=== PATIENT | male | born 1960 | race Hispanic/Latino ===

== ENCOUNTER 2018-03-21 21:08 | Emergency (ER) | payer OTHER ==
[2018-03-21 21:27] VITALS: RESP 18
[2018-03-21] MEDS ORDERED: Sodium Chloride 0.9% 1,000 ML IV STA (21:42)
[2018-03-21 22:19] LABS: BASO # 0.02 K/mm3 (0.0-2.0); BASO % 0.2 % (0.0-3.0); EOS # 0.1 (0.0-0.7); EOS % 0.4 % (1.5-5.0); GRAN # 8.19 (1.4-6.5); HEMOGLOBIN 17.6 g/dL (14.0-18.0); LYMPH % 24.5 % (22.0-35.0); MEAN CORPUSCULAR HEMOGLOBIN 29.7 pg (25.0-35.0); MEAN CORPUSCULAR HGB CONC 33.8 g/dl (31.0-37.0); MONO # 1.1 (0.1-0.6); MONO % 8.9 % (1.0-6.0); RBC 5.92 10^6/uL (3.5-6.1); WHITE BLOOD COUNT 12.4 10^3/ul (4.5-11.0)
[2018-03-21 22:22] LABS: ALB/GLOB RATIO 1.3 (1.1-1.8); ALBUMIN 4.5 g/dL (3.0-4.8); ALT/SGPT 100 U/L (7-56); AST/SGOT 73 U/L (17-59); BLOOD UREA NITROGEN 12 mg/dL (7-21); CALCIUM 9.3 mg/dL (8.4-10.5); GFR NON-AFRICAN AMERICAN > 60
--- NOTE | 2018-03-21 22:26 | ED PDOC ---
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 States that he was at the local [facility] drinking beer with friends, when he started to feel "foggy with tightness to the back of my neck." He then got up and walked outside to sit at the bench, afterwards recall being woken up on the ground. He reports that he did not hit his head. Reports feeling better upon arrival to the ER, without any dizziness. Otherwise:(-) trauma, (-) headache, (-) tinnitus, (- ) hearing loss, (-) chest pain, (-) dyspnea, (-) fever, (-) vomiting, (-) diarrhea, (-) GI bleeding. PMD Rosas <Erin Triana PA-C - Last Filed: 03/22/18 00:37> <Pura Martini - Last Filed: 03/23/18 13:43> - General Chief Complaint: Medical Clearance Time Seen by Provider: 03/21/18 21:23 Past Medical History - Infectious Disease Hx of Infectious Diseases: None - Cardiac Hx Cardiac Disorders: Yes Hx Hypertension: Yes - Pulmonary Hx Respiratory Disorders: No - Neurological Hx Neurological Disorder: No - HEENT Hx HEENT Disorder: No - Renal Hx Renal Disorder: No - Endocrine/Metabolic Hx Endocrine Disorders: No - Hematological/Oncological Hx Blood Disorders: No - Integumentary Hx Dermatological Disorder: No - Musculoskeletal/Rheumatological Hx Musculoskeletal Disorders: No - Gastrointestinal Hx Gastrointestinal Disorders: No - Genitourinary/Gynecological Hx Genitourinary Disorders: No - Psychiatric Hx Psychophysiologic Disorder: No Hx Substance Use: Yes - Surgical History Other/Comment: rt ankle sx c screws - Anesthesia Hx Anesthesia: Yes Hx Anesthesia Reactions: No <Erin Triana PA-C - Last Filed: 03/22/18 00:37> Family/Social History Family/Social History: Unknown Family HX Smoking Status: Heavy Smoker > 10 Cigarettes Daily Hx Alcohol Use: Yes Hx Substance Use: Yes Substance used: marijuana <Erin Triana PA-C - Last Filed: 03/22/18 00:37> Allergies/Home Meds <Erin Triana PA-C - Last Filed: 03/22/18 00:37> <MartiniJessePura - Last Filed: 03/23/18 13:43> Allergies/Adverse Reactions: Allergies No Known Allergies Allergy (Verified 03/21/18 21:15) Home Medications: Home Meds Medication Instructions Recorded Confirmed RX: Metoprolol Succinate 50 mg PO DAILY 03/21/18 03/21/18 [Kapspargo Sprinkle] RX: Simvastatin [Zocor] 40 mg PO DAILY 03/21/18 03/21/18 Review of Systems - Review of Systems Constitutional: absent: Fatigue, Fevers Respiratory: absent: SOB, Cough Cardiovascular: Syncope. absent: Chest Pain, Palpitations Gastrointestinal: absent: Abdominal Pain, Diarrhea, Nausea Genitourinary Male: absent: Dysuria, Frequency Musculoskeletal: Neck Pain. absent: Arthralgias, Back Pain Skin: absent: Rash, Pruritis Neurological: Dizziness. absent: Headache <Erin Triana PA-C - Last Filed: 03/22/18 00:37> Physical Exam Vital Signs Pulse Resp BP Pulse Ox 03/21/18 21:21 92 H 18 107/74 94 L Temperature: Afebrile Blood Pressure: Normal Pulse: Regular Respiratory Rate: Normal Appearance: Positive for: Well-Appearing, Non-Toxic, Comfortable Pain Distress: None Mental Status: Positive for: Alert and Oriented X 3 - Systems Exam Head: Present: Atraumatic, Normocephalic Pupils: Present: PERRL Extroacular Muscles: Present: EOMI Conjunctiva: Present: Normal Mouth: Present: Dry Neck: Present: Normal Range of Motion Respiratory/Chest: Present: Clear to Auscultation, Good Air Exchange. No: Respiratory Distress, Accessory Muscle Use Cardiovascular: Present: Regular Rate and Rhythm, Normal S1, S2. No: Murmurs Abdomen: No: Tenderness, Distention, Peritoneal Signs Back: Present: Normal Inspection Upper Extremity: Present: Normal Inspection. No: Cyanosis, Edema Lower Extremity: Present: Normal Inspection. No: Edema Neurological: Present: GCS=15, CN II-XII Intact, Speech Normal, Motor Func Grossly Intact, Normal Sensory Function, Memory Normal Skin: Present: Warm, Dry, Normal Color. No: Rashes Psychiatric: Present: Alert, Oriented x 3, Normal Insight, Normal Concentration <Erin Triana PA-C - Last Filed: 03/22/18 00:37> Vital Signs Temp Pulse Resp BP Pulse Ox 03/21/18 23:35 97.6 F 78 18 108/61 95 03/21/18 21:21 92 H 18 107/74 94 L <Pura Martini - Last Filed: 03/23/18 13:43> Medical Decision Making ED Course and Treatment: 03/21/18 22:20 Plan : - labs - IV - IVF NS bolus - alcohol level - EKG - CT head Patient refused CT head. He states that he feels that he was just dehydrated and believes that is the reason why he passed out. He consents to EKG, labs and IVF. EKG : NSR at 83 bpm, no acute ST changes, as read by NETO. Labs reviewed : wbc 12.4, CO2 17, AST 73, ALT, trop (-), UDS +cannabis, alcohol level 92. VS : T 97.6 P 78 BP 108/61 R 18 O2 sat 95%RA 03/21/18 23:54 On re-evaluation, patient reports feeling much improved, denies any headache, dizziness, CP, or SOB. He is still refusing head CT. On exam, patient remains AAOx3, in no acute distress. Patient is smiling and in good spirits. Repeat neuro exam shows no focal findings. Diagnostic results d/w the patient in great detail. Diagnosis of syncope d/w the patient. Based on history, exam and diagnostic results, plan will be for observation, which the patient is also refusing. Stating that he feels well and wishes not to stay any further in the ER or the hospital. He believes his symptoms were triggered due to lack of drinking enough water today or eating, only drinking beer all day. Patient refuses further care, evaluation or treatment in the ER. Patient is also refusing further observation for at least 24 hours due to syncopal episodes. Patient informed of the reasons for the following and planned treatment, which patient understands, however still refuses. Patient informed of the risk and benefits of treatment. Informed that the risk could include worsening of current conditions, undiagnosed conditions, disability or even . Patient understands the following risk and the benefits of treatment. Patient has the capacity to make decisions and still refuses treatment by RN, PA and ER MD. P atient encouraged to return to the ER at any time and to follow up with pmd. - Lab Interpretations Lab Results: 03/21/18 22:04 Lab Results 03/21/18 22:04: WBC 12.4 H, RBC 5.92, Hgb 17.6, Hct 52.1 H, MCV 88.0, MCH 29.7, MCHC 33.8, RDW 14.0, Plt Count 197, MPV 10.0, Gran % 66.0, Lymph % (Auto) 24.5, [place] % (Auto) 8.9 H, Eos % (Auto) 0.4 L, Baso % (Auto) 0.2, Gran # 8.19 H, Lymph # (Auto) 3.0, [place] # (Auto) 1.1 H, Eos # (Auto) 0.1, Baso # (Auto) 0.02 03/21/18 21:20: POC Glucose (mg/dL) 90 - Medication Orders Current Medication Orders: Sodium Chloride (Sodium Chloride 0.9%) 1,000 mls @ 1,000 mls/hr IV .Q1H STA Stop: 03/21/18 22:41 <Kong ONEAL,Erin Monte - Last Filed: 03/22/18 00:37> - Lab Interpretations Lab Results: 03/21/18 22:04 03/21/18 22:04 Lab Results 03/21/18 22:42: Urine Opiates Screen Negative, Urine Methadone Screen Negative, Ur Barbiturates Screen Negative, Ur Phencyclidine Scrn Negative, Ur Amphetamines Screen Negative, U Benzodiazepines Scrn Negative, U Oth Cocaine Metabols Negative, U Cannabinoids Screen Positive H 03/21/18 22:04: Alcohol, Quantitative 92 H 03/21/18 22:04: Sodium 135, Potassium 4.3, Chloride 103, Carbon Dioxide 17 L, Anion Gap 19, BUN 12, Creatinine 1.2, Est GFR ( Amer) > 60, Est GFR (Non- Af Amer) > 60, Random Glucose 110, Calcium 9.3, Total Bilirubin 0.7, AST 73 H, ALT 100 H, Alkaline Phosphatase 63, Troponin I < 0.01, Total Protein 7.8, Albumin 4.5, Globulin 3.3, Albumin/Globulin Ratio 1.3 03/21/18 22:04: WBC 12.4 H, RBC 5.92, Hgb 17.6, Hct 52.1 H, MCV 88.0, MCH 29.7, MCHC 33.8, RDW 14.0, Plt Count 197, MPV 10.0, Gran % 66.0, Lymph % (Auto) 24.5, [place] % (Auto) 8.9 H, Eos % (Auto) 0.4 L, Baso % (Auto) 0.2, Gran # 8.19 H, Lymph # (Auto) 3.0, [place] # (Auto) 1.1 H, Eos # (Auto) 0.1, Baso # (Auto) 0.02 03/21/18 21:20: POC Glucose (mg/dL) 90 - Medication Orders Current Medication Orders: Discontinued Medications Sodium Chloride (Sodium Chloride 0.9%) 1,000 mls @ 1,000 mls/hr IV .Q1H STA Stop: 03/21/18 22:41 Last Admin: 03/21/18 22:10 Dose: 1,000 mls/hr eMAR Start Stop Document 03/21/18 22:10 RG (Rec: 03/21/18 22:28 RG [id number]) Intravenous Solution Start Date 03/21/18 Start Time 22:10 <Pura Martini - Last Filed: 03/23/18 13:43> - PA / CHEMICAL MAKER / Resident Statement FIDEL has reviewed & agrees with the documentation as recorded. <Erin Triana PA-C - Last Filed: 03/22/18 00:37> - PA / CHEMICAL MAKER / Resident Statement FIDEL has reviewed & agrees with the documentation as recorded. <Pura Martini - Last Filed: 03/23/18 13:43> Disposition/Present on Arrival - Present on Arrival Any Indicators Present on Arrival: No History of DVT/PE: No History of Uncontrolled Diabetes: No Urinary Catheter: No History of Decub. Ulcer: No History Surgical Site Infection Following: None - Disposition Have Diagnosis and Disposition been Completed?: Yes Disposition Time: 23:50 Patient Plan: Other (Patient wishes to leave AMA) <Erin Triana PA-C - Last Filed: 03/22/18 00:37> <Pura Martini - Last Filed: 03/23/18 13:43> - Disposition Diagnosis: Syncope, Dehydration Disposition: AGAINST MEDICAL ADVICE Condition: UNKNOWN Discharge Instructions (ExitCare): Dehydration, Adult (DC), Leaving Against Medical Advice, Syncope (ED) Additional Instructions: Thank you for letting us take care of you today. You are choosing to leave against medical advice. You were treated for syncope, dehydration. The emergency medical care you received today was directed at your acute symptoms. It may take several days for your symptoms to resolve. Return to the Emergency Department if your symptoms worsen, do not improve, or if you have any other problems. Please contact your doctor in 2 days for re-evaluation and follow up. Bring any paperwork you were given at discharge with you along with any medications you are taking to your follow up visit. Our treatment cannot replace ongoing medical care by a primary care provider (PCP) outside of the emergency department. Thank you for allowing the [facility] team to be part of your care today. Referrals: Kentrell Tan MD [Primary Care Provider] - Follow up with primary Forms: Epic! (Portuguese)
[2018-03-21 22:35] LABS: TROPONIN I < 0.01 ng/mL
[2018-03-21 23:28] LABS: BARBITURATES, UR NEGATIVE (NEGATIVE); BENZODIAZEPINES, UR NEGATIVE (NEGATIVE); OPIATES, UR NEGATIVE (NEGATIVE); PHENCYCLIDINE, UR NEGATIVE (NEGATIVE)
[2018-03-22 00:13] VITALS: BP 108/61; PULSE 78; TEMP 97.6; O2SAT 95
--- NOTE | 2018-03-22 11:54 | CARD ---
APPROVED REPORT Date of service: 03/21/2018 EKG Measurement Heart [id number] <Conclusion> Normal sinus rhythm Left anterior fascicular block Abnormal ECG
== END 2018-03-22 00:04 | disposition left against medical advice (07) ==
LOC: ED 21:08
DX: R55 Syncope and collapse (principal); E86.0 Dehydration; E78.00 Pure hypercholesterolemia, unspecified; I10 Essential (primary) hypertension; F17.210 Nicotine dependence, cigarettes, uncomplicated
CPT/HCPCS: 80053; 80320; 80324; 80345; 80346; 80349; 80353; 80358; 80361; 82948; 83992; 84484; 85025; 93005; 99284; J7030